=== PATIENT | male | born 1965 | race Two or more races ===

== ENCOUNTER 2022-08-31 01:09 | Inpatient (IN) | payer OTHER ==
[~2022-08-31] VITALS: Ht 182.9 cm; Wt 95.0 kg
[2022-08-31] MEDS ORDERED: VANCOMYCIN 1GM/250ML 250 ML IV ONE (02:00)
[2022-08-31] MEDS ORDERED: PIPERACILLIN-TAZOB 3.375GM 100 ML IV ONE (02:00)
[2022-08-31] MEDS ORDERED: LACTATED RINGER'S 2,850 ML IV ONE (02:00)
[2022-08-31 02:39] LABS: Hematocrit 37.4 % (41.0-53.0); Hemoglobin 11.7 g/dL (13.5-17.5); Mean Corpuscular Hemoglobin 31.2 pg (28.0-32.0); Mean Corpuscular Hgb Conc. 31.3 g/dL (32.0-36.0); Mean Corpuscular Volume 99.6 fL (80.0-100.0); Red Blood Cells 3.76 10^6/uL (4.5-5.90); Red Cell Distribution Width 13.3 % (11.8-14.3); White Blood Cell 12.8 10^3/uL (4.4-10.8)
[2022-08-31 02:41] LABS: Basophils % (manual) 0 (0.0-2.0); Eosinophils % (manual) 0 (0-7); Myelocytes % 0
[2022-08-31 02:43] LABS: Blast Cells 0; Promyelocytes % 0; Reactive Lymphocytes 0
[2022-08-31] MEDS ORDERED: ALBUMIN 25% 100 ML IV ONE (02:45)
[2022-08-31] MEDS ORDERED: InsuLIN REG 1unit/0.01ml Soln (100units/ml) IV ONE (02:45)
[2022-08-31 02:52] LABS: Band Neutrophils % (manual) 5; Lymphocytes % (manual) 3 (10.0-50.0); Metamyelocytes % 2; Monocytes % (manual) 8 (0-12)
[2022-08-31 02:58] LABS: Albumin 1.7 g/dL (3.4-5.0); BUN/Creatinine Ratio 18.9; Calcium 7.7 mg/dL (8.5-10.1); Potassium 3.5 mmol/L (3.5-5.1)
[2022-08-31 02:59] LABS: Lactic Acid w/Reflex 7.5 mmol/L (0.4-2.0)
[2022-08-31 03:05] LABS: Bilirubin, Total 1.5 mg/dL (0.2-1.0); Total Protein 5.3 g/dL (6.4-8.2)
[2022-08-31] MEDS ORDERED: InsuLIN R (HUMAN) 100 UNITS in SODIUM CHL 0.9% 99 ML IV SCH ×4 (03:15)
[2022-08-31] MEDS ORDERED: INSULIN LANTUS (GLARGINE) 1 /0.01ml (100units/ml) SC ONE (03:15)
[2022-08-31] MEDS ORDERED: DEXTROSE (50%) 50ML SYRG IV PRN ×3 (03:15→14:15)
[2022-08-31 03:26] LABS: Magnesium 2.3 mg/dL (1.6-2.6)
[2022-08-31] MEDS ORDERED: InsuLIN REG 1unit/0.01ml Soln (100units/ml) ONE (05:51)
[2022-08-31] MEDS ORDERED: ONDANSETRON HCL 4 MG/2 ML VIAL IV PRN (06:30)
[2022-08-31] MEDS ORDERED: SODIUM CHLORIDE 0.9% 1,000 ML IV SCH ×2 (06:30→07:15)
[2022-08-31] MEDS ORDERED: NITROGLYCERIN 0.4 MG SL TAB SL PRN (06:30)
[2022-08-31] MEDS ORDERED: SODIUM BICARBONATE 8.4 % INJ 50ML VIAL IV ONE (06:30)
[2022-08-31] MEDS ORDERED: MORPHINE SULFATE INJ 2 MG/ml SYRG IV PRN (06:30)
[2022-08-31] MEDS ORDERED: ACETAMINOPHEN 325 MG TAB PO PRN (06:30)
[2022-08-31] MEDS: ACCU-CHEK COMFORT CURVE STRIP VI SCH ×10 (06:33→23:57)
[2022-08-31] MEDS: SODIUM CHLORIDE 0.9% 1,000 ML IV SCH ×4 (06:35→09:53)
[2022-08-31] MEDS ORDERED: cefTRIAXone 1GM/50ML D5W 50 ML IV SCH (09:00)
[2022-08-31 10:19] LABS: Urine Amorphous Crystal FEW /hpf (None Seen); Urine Bacteria NONE SEEN /hpf (None Seen); Urine Blood 3+ /uL (Negative); Urine Hyaline Cast FEW /lpf (0 - 2); Urine Specific Gravity 1.021 (1.001-1.035); Urine Sperm PRESENT /hpf (None Seen); Urine WBC 5 /hpf (0 - 3)
[2022-08-31 10:31] LABS: Potassium 3.6 mmol/L (3.5-5.1)
[2022-08-31 10:33] LABS: BUN/Creatinine Ratio 22.6
[2022-08-31 10:36] LABS: Amphetamine Screen, Urine NEGATIVE (NEGATIVE); Barbiturate Scree,Urine NEGATIVE (NEGATIVE); Benzodiazephine Screen, Urine NEGATIVE (NEGATIVE); Cannabinoid Screen, Urine NEGATIVE (NEGATIVE); Cocaine Screen, Urine NEGATIVE (NEGATIVE); Opiate Scree,Urine NEGATIVE (NEGATIVE); Phencyclidine Screen, Urine NEGATIVE (NEGATIVE)
[2022-08-31] MEDS ORDERED: VANCOMYCIN PER PHARMACY 0 MG IV SCH (13:45)
[2022-08-31] MEDS ORDERED: CLINDAMYCIN 600MG IV 50 ML IV SCH (14:00)
[2022-08-31] MEDS: SODIUM BICARBONATE 50ML VIAL 50 ML in SOD CHL 0.45% 1,000 ML IV SCH (15:16)
[2022-08-31 15:18] LABS: Potassium 3.4 mmol/L (3.5-5.1)
[2022-08-31 15:23] LABS: Calcium 8.4 mg/dL (8.5-10.1)
[2022-08-31 15:36] LABS: Creatine Kinase IFCC 3144 U/L (39-308)
[2022-08-31 15:51] LABS: CRP High Sensitivity > 19 mg/dL (< 0.3)
[2022-08-31] MEDS: InsuLIN REG 1unit/0.01ml Soln (100units/ml) SC SCH ×2 (17:07→20:09)
[2022-08-31] MEDS: NOREPINEPHRINE 8 MG/250ML KIT 250 ML IV SCH (18:28)
[2022-08-31] MEDS ORDERED: LORazepam 2MG/ML-1ML VIAL IV ONE (22:30)
[2022-08-31] MEDS: CEFEPIME 2 GM in SODIUM CHL 0.9% 50 ML IV SCH (22:55)
[2022-08-31] MEDS ORDERED: VANCOMYCIN 1GM/250ML 250 ML IV SCH (23:00)
[2022-09-01] MEDS: InsuLIN REG 1unit/0.01ml Soln (100units/ml) SC SCH ×6 (00:06→20:01)
[2022-09-01] MEDS: ACCU-CHEK COMFORT CURVE STRIP VI SCH ×5 (04:10→19:52)
[2022-09-01] MEDS: SODIUM BICARBONATE 50ML VIAL 50 ML in SOD CHL 0.45% 1,000 ML IV SCH (04:11)
[2022-09-01] MEDS ORDERED: ACETAMINOPHEN IV 1000 MG/100ML (10MG/ML) IV ONE (05:15)
[2022-09-01 06:28] LABS: Potassium 4.1 mmol/L (3.5-5.1)
[2022-09-01 06:37] LABS: Albumin 1.6 g/dL (3.4-5.0); BUN/Creatinine Ratio 28.6; Calcium 8.1 mg/dL (8.5-10.1); Total Protein 6.4 g/dL (6.4-8.2)
[2022-09-01 07:19] LABS: Basophils # (auto) 0.2 10 ^3/uL (0-0.2); Basophils % (auto) 0.9 % (0.0-2.0); Eosinophils # (auto) 0.1 10 ^3/uL (0-0.8); Eosinophils % (auto) 0.4 % (0.0-7.0); Hematocrit 40.9 % (41.0-53.0); Hemoglobin 13.7 g/dL (13.5-17.5); Lymphocytes # (auto) 1.3 10 ^3/uL (0.4-5.4); Lymphocytes % (auto) 6.9 % (10.0-50.0); Mean Corpuscular Hemoglobin 31.2 pg (28.0-32.0); Mean Corpuscular Hgb Conc. 33.4 g/dL (32.0-36.0); Mean Corpuscular Volume 93.3 fL (80.0-100.0); Monocytes # (auto) 1.2 10 ^3/uL (0-1.3); Monocytes % (auto) 6.5 % (0.0-12.0); Neutrophils # (auto) 15.9 10 ^3/uL (1.6-8.6); Neutrophils % (auto) 85.3 % (37.0-80.0); Nucleated Red Blood Cells % 0.2 %; Red Blood Cells 4.38 10^6/uL (4.5-5.90); Red Cell Distribution Width 13.2 % (11.8-14.3); White Blood Cell 18.6 10^3/uL (4.4-10.8)
[2022-09-01] MEDS: INSULIN LANTUS (GLARGINE) 1 /0.01ml (100units/ml) SC SCH (11:14)
[2022-09-01] MEDS ORDERED: LORazepam 2MG/ML-1ML VIAL ONE (12:22)
[2022-09-01] MEDS ORDERED: LACTATED RINGER'S 1,000 ML IV ONE (12:45)
[2022-09-01] MEDS: SODIUM BICARB 50ML SYR 50 ML in SOD CHL 0.45% 1,000 ML IV SCH ×2 (12:53→21:16)
[2022-09-01] MEDS ORDERED: LORazepam 2MG/ML-1ML VIAL IV ONE ×2 (13:00→20:45)
[2022-09-01] MEDS: CEFEPIME 2 GM in SODIUM CHL 0.9% 50 ML IV SCH ×2 (13:40→22:22)
[2022-09-01] MEDS: NOREPINEPHRINE 8 MG/250ML KIT 250 ML IV SCH (13:50)
[2022-09-01] MEDS: metroNIDAZOLE 500MG/100ML 100 ML IV SCH ×2 (14:52→22:22)
[2022-09-01] MEDS ORDERED: VANCOMYCIN 1GM/250ML 250 ML IV SCH (21:00)
[2022-09-01] MEDS ORDERED: FUROSEMIDE 20 MG/2 ML VIAL IV ONE (23:15)
[2022-09-02] MEDS: InsuLIN REG 1unit/0.01ml Soln (100units/ml) SC SCH ×4 (01:52→12:56)
[2022-09-02] MEDS: ACCU-CHEK COMFORT CURVE STRIP VI SCH ×4 (01:52→12:56)
[2022-09-02 04:20] LABS: Potassium 4.1 mmol/L (3.5-5.1)
[2022-09-02 04:22] LABS: Hematocrit 45.1 % (41.0-53.0); Hemoglobin 14.8 g/dL (13.5-17.5); Mean Corpuscular Hemoglobin 31.3 pg (28.0-32.0); Mean Corpuscular Hgb Conc. 32.8 g/dL (32.0-36.0); Mean Corpuscular Volume 95.3 fL (80.0-100.0); Red Blood Cells 4.73 10^6/uL (4.5-5.90); Red Cell Distribution Width 13.5 % (11.8-14.3); White Blood Cell 19.4 10^3/uL (4.4-10.8)
[2022-09-02 04:25] LABS: BUN/Creatinine Ratio 34.1; Calcium 7.2 mg/dL (8.5-10.1)
[2022-09-02 04:26] LABS: Basophils % (manual) 0 (0.0-2.0); Blast Cells 0; Promyelocytes % 0; Reactive Lymphocytes 0
[2022-09-02 04:49] LABS: Band Neutrophils % (manual) 25; Eosinophils % (manual) 1 (0-7); Lymphocytes % (manual) 15 (10.0-50.0); Metamyelocytes % 2; Monocytes % (manual) 8 (0-12); Myelocytes % 3
[2022-09-02] MEDS: CEFEPIME 2 GM in SODIUM CHL 0.9% 50 ML IV SCH (04:56)
[2022-09-02] MEDS: SODIUM BICARB 50ML SYR 50 ML in SOD CHL 0.45% 1,000 ML IV SCH (05:33)
[2022-09-02] MEDS ORDERED: PHENYLEPHRINE IV 250 ML IV ONE (06:10)
[2022-09-02] MEDS ORDERED: PHENYLEPHRINE IV 250 ML IV SCH ×2 (06:15→10:30)
[2022-09-02] MEDS ORDERED: HYDROCORTISONE SOD SUCC 100 MG/2ML INJ VIAL IV ONE (06:15)
[2022-09-02] MEDS ORDERED: VASOPRESSIN 50 UNITS in D5W 5% 247.5 ML IV SCH (06:30)
[2022-09-02] MEDS ORDERED: ETOMIDATE (2MG/ML) 20ML VIAL IV ONE (06:45)
[2022-09-02] MEDS ORDERED: SUCCINYLCHOLINE CHLORIDE 20 MG/ML 10ML VIAL IV ONE ×2 (06:45→06:48)
[2022-09-02] MEDS ORDERED: MIDAZOLAM DRIP 50 mg/50mL 50 ML IV ONE (06:55)
[2022-09-02] MEDS ORDERED: MIDAZOLAM DRIP 50 mg/50mL 50 ML IV SCH (07:00)
[2022-09-02] MEDS ORDERED: ONDANSETRON HCL 4 MG/2 ML VIAL IV PRN (10:15)
[2022-09-02] MEDS ORDERED: ACETAMINOPHEN 650 MG RECT SUPP PR ONE (10:15)
[2022-09-02] MEDS ORDERED: IPRATROPIUM BROM 0.5 MG/2.5ML INH SOL NEB PRN (10:15)
[2022-09-02] MEDS ORDERED: ALBUTEROL SULF 2.5 MG/0.5ML(0.5%) NEB SOLN NEB PRN (10:15)
[2022-09-02] MEDS ORDERED: HYDROcodone-ACET 5/325MG TAB PO PRN (10:15)
[2022-09-02] MEDS ORDERED: ACETAMINOPHEN 500 MG TAB PO PRN (10:15)
[2022-09-02] MEDS ORDERED: LINEZOLID 600MG/300ML 300 ML IV SCH (10:17)
[2022-09-02] MEDS ORDERED: EPINEPHrine HCL 250 ML IV SCH (10:30)
[2022-09-02] MEDS ORDERED: SODIUM BICARBONATE 8.4 % INJ 50ML VIAL IV ONE (10:30)
[2022-09-02] MEDS ORDERED: SODIUM BICARBONATE 50ML VIAL 150 ML in D5W 5% 1,000 ML IV SCH (10:30)
[2022-09-02] MEDS: INSULIN LANTUS (GLARGINE) 1 /0.01ml (100units/ml) SC SCH (10:49)
[2022-09-02 10:55] VITALS: BP 144/75
[2022-09-02] MEDS ORDERED: metroNIDAZOLE 500MG/100ML 100 ML IV SCH (14:00)
[2022-09-02 15:24] VITALS: BP 60/10
[2022-09-02] MEDS ORDERED: VANCOMYCIN 1GM/250ML 250 ML IV SCH (21:00)
[2022-09-03] MEDS ORDERED: EPINEPHrine HCL 1 MG/10 ML SYRG IV ONE (21:34)
[2022-09-03] MEDS ORDERED: SODIUM BICARBONATE 8.4% INJ 50ML SYRINGE IV ONE (21:34)
== END 2022-09-02 16:03 | DRG 720 ==
LOC: ER 01:13 → OVERFLOW 06:22
PROVIDERS: ADMIT Nurse Practitioner; ATTEND Nurse Practitioner Acute Care
PROC: 02HV33Z Insertion of Infusion Device into Superior Vena Cava, Percutaneous Approach (ICD-10-PCS; principal; 2022-09-01)
PROC: B548ZZA Ultrasonography of Superior Vena Cava, Guidance (ICD-10-PCS; 2022-09-01)
PROC: 5A1935Z Respiratory Ventilation, Less than 24 Consecutive Hours (ICD-10-PCS; 2022-09-02)
PROC: 0BH17EZ Insertion of Endotracheal Airway into Trachea, Via Natural or Artificial Opening (ICD-10-PCS; 2022-09-02)
DX: A41.9 Sepsis, unspecified organism (principal); N17.0 Acute kidney failure with tubular necrosis; R65.21 Severe sepsis with septic shock; G93.41 Metabolic encephalopathy; E11.10 Type 2 diabetes mellitus with ketoacidosis without coma; E43 Unspecified severe protein-calorie malnutrition; E86.0 Dehydration; E87.1 Hypo-osmolality and hyponatremia; L03.115 Cellulitis of right lower limb; N18.9 Chronic kidney disease, unspecified; Z20.822 Contact with and (suspected) exposure to COVID-19; E11.51 Type 2 diabetes mellitus with diabetic peripheral angiopathy without gangrene; Z68.28 Body mass index [BMI] 28.0-28.9, adult
CPT/HCPCS: 36415; 36600; 70450; 71045; 73700; 76775; 80048; 80053; 80202; 80307; 81001; 82010; 82550; 82805; 82962; 83036; 83605; 83735; 83880; 83930; 84100; 84300; 84484; 85007; 85025; 85027; 85379; 86141; 87040; 87070; 87077; 87186; 87205; 87426; 87804; 93005; 93306; 93970; 94002; 95819; 96365; 96366; 96367; 96368; 96372; 99291; 99292; G0378; J0131; J0330; J0696; J1815; J2250; J2543; J3490; J7060; P9047